=== PATIENT | male | born 1995 | race Caucasian/White ===

== ENCOUNTER 2021-12-18 20:01 | Emergency (ER) | payer OTHER ==
[2021-12-18] MEDS ORDERED: LIDOCAINE 1% 2 ML VIAL SUBQ STA (20:46)
--- NOTE | 2021-12-18 21:08 | ED Physician Documentation ---
PD HPI UPPER EXT INJURY - Stated complaint Stated Complaint: LT FINGER INJ - Chief complaint Chief Complaint: Laceration - History obtained from History obtained from: Patient, Family - History of Present Illness Location: Left, Finger (index) Type of injury: Laceration Where injury occurred: Home Timing - onset: Today Timing - duration: Hours Timing - details: Abrupt onset, Still present Improved by: Rest, Immobilization Worsened by: Moving, Palpating Associated symptoms: Numbness. No: Weakness Contributing factors: No: Anticoagulated Similar symptoms before: Diagnosis (laceration) Recently seen: Not recently seen - Additonal information Additional information: Previously well 26-year-old male using a knife. Food lacerated his left index finger earlier in the day he put his tape over it and continued working he is now complaining of pain that is extending into his elbow from this area. He has had some difficulty controlling the bleeding. Review of Systems Constitutional: denies: Fever Respiratory: denies: Cough GI: denies: Vomiting Skin: reports: Laceration (s) Musculoskeletal: reports: Extremity pain Neurologic: reports: Numbness (Distal left index finger). denies: Generalized weakness, Focal weakness PD PAST MEDICAL HISTORY - Past Medical History Past Medical History: No Cardiovascular: None Respiratory: None Neuro: None Endocrine/Autoimmune: None GI: None : None HEENT: None Psych: None Musculoskeletal: None Derm: None - Past Surgical History Past Surgical History: No - Present Medications Home Medications: Ambulatory Orders Medication Instructions Recorded Confirmed No Known Home Medications 12/18/21 12/18/21 - Allergies Allergies/Adverse Reactions: Allergies Allergy/AdvReac Type Severity Reaction Status Date / Time No Known Drug Allergies Allergy Verified 12/18/21 20:13 - Social History Does the pt smoke?: No Smoking Status: Never smoker Does the pt drink ETOH?: No Does the pt have substance abuse?: No - Immunizations Immunizations are current?: Yes - POLST Patient has POLST: No PD ED PE NORMAL - Vitals Vital signs reviewed: Yes (Normal) - General General: Alert and oriented X 3, No acute distress, Well developed/nourished - HEENT HEENT: Atraumatic, PERRL, EOMI - Respiratory Respiratory: No respiratory distress - Derm Derm: Normal color, Warm and dry, No rash - Extremities Extremities: No deformity, No edema, Other (2 and half centimeter laceration of the left index finger over the distal phalange ulnar surface without involvement of deeper structures the depth of the wound is not deep enough to lacerate a nerve. 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, No motor deficit, No sensory deficit, Normal speech Eye Opening: Spontaneous Motor: Obeys Commands Verbal: Oriented GCS Score: 15 - Psych Psych: Normal mood, Normal affect Results - Vitals Vitals: Vital Signs - 24 hr 12/18/21 12/18/21 20:12 21:22 Temperature 36.2 C L Heart Rate 71 Respiratory 16 16 Rate Blood Pressure 119/54 L O2 Saturation 99 Oxygen O2 Source Room air Procedures - Laceration (location) left index Length in cm: 2.5 Wound type: Linear, Irregular, Into subcut fat, Clean Neurovascular status: Motor intact, Vascular intact, Other (distal to cut there is tingling) Anesthesia: Lidocaine 1% Wound preparation: Hibiclens, Irrigated copiously NS, Wound explored, To the base Skin layer closure: Nylon, Interrupted, Size #-0 - enter number (5-0), Sutures - enter # (5) Other: Patient tolerated well, No complications, Neurovascular intact, Dressing applied, Tetanus UTD PD MEDICAL DECISION MAKING - ED course Complexity details: reviewed results, re-evaluated patient, considered differential, d/w patient, d/w family ED course: 26-year-old male with laceration to left index finger with some complaints of pain and numbness distally. The laceration does not appear long deep enough to cause laceration of the digital nerve. I suspect patient's pain complaints are related to use of this finger continuously for 4 hours after the laceration. He is sutured and tolerates this well. Departure - Departure Disposition: 01 Home, Self Care Clinical Impression: Laceration of left index finger Qualifiers: Encounter type: initial encounter Damage to nail status: without damage Foreign body presence: without foreign body Qualified Code(s): S61.211A - Laceration without foreign body of left index finger without damage to nail, initial encounter Condition: Stable Instructions: ED Laceration Hand Follow-Up: JERRY Morgan [Provider Group] Comments: Haile, it looks like the cut you have to your finger is not deep enough to have caused a laceration to a digital nerve. The expectation is your sensation to the fingertip will resolve completely. As will the pain. The sutures will need to be removed in 7 to 10 days. Forms: Activity restrictions
[2021-12-18 21:40] VITALS: BP 118/84
== END 2021-12-18 21:44 | disposition home or self-care (01) ==
LOC: ED 20:01
DX: S61.211A Laceration without foreign body of left index finger without damage to nail, initial encounter (principal); W26.0XXA Contact with knife, initial encounter; Y99.0 Civilian activity done for income or pay
CPT/HCPCS: 12001; 99282